=== PATIENT | male | born 1990 | race Caucasian/White ===

== ENCOUNTER → 2023-04-29 | Outpatient (REF) | payer OTHER | LOC: M LABSMT 09:18 | PROVIDERS: ATTEND Urology | DX: Z30.2 Encounter for sterilization (principal) ==

== ENCOUNTER → 2023-05-29 | Outpatient (CLI) | payer OTHER ==
[~2023-05-29] MED LIST: ISOVUE-300 61% 100ML VIAL As Ordered ONE; LIDOCAINE 1% MDV 20ML VIAL As Ordered ONE; PROHANCE 279.3MG/ML 5ML VIAL As Ordered ONE
== END ==
LOC: M RAD 12:31
PROVIDERS: ATTEND Orthopaedic Surgery
DX: M25.512 Pain in left shoulder (principal)
CPT/HCPCS: 23350; 73223; 77002; A9576; Q9967

== ENCOUNTER → 2023-08-03 | Outpatient (REF) | payer OTHER ==
[2023-08-03 13:01] LABS: SEMEN APPEARANCE OPAQUE (OPAQUE); SEMEN VISCOSITY LIQUID (LIQUID); WBC CONCENTRATION <=1 M/ml (<=1 M/ml)
== END ==
LOC: M SMT 12:16
PROVIDERS: ATTEND Urology
DX: Z30.2 Encounter for sterilization (principal)

== ENCOUNTER 2023-12-09 10:24 | Day surgery (SDC) | payer OTHER ==
[~2023-12-09] VITALS: Ht 177.8 cm; Wt 75.6 kg
[~2023-12-09 10:24] MED LIST changes: +GABA-282 PO; -ISOVUE-300 61% 100ML VIAL As Ordered ONE; -LIDOCAINE 1% MDV 20ML VIAL As Ordered ONE; -PROHANCE 279.3MG/ML 5ML VIAL As Ordered ONE; +TRANEXAMIC ACID 100 MG/ML 10ML VIAL IV ONE
[2023-12-09] MEDS ORDERED: LR 1,000 ML IV SCH ×2 (11:00→18:20)
[2023-12-09] MEDS ORDERED: fentaNYL 100 MCG/2 ML INJECTION IV PRN (12:30)
[2023-12-09] MEDS: MIDAZOLAM INJ 2MG/2ML VIAL IV PRN (13:48)
[2023-12-09] MEDS: EPINEPHrine INJ 1 MG/ML 1ML AMP INJ ONE (13:54)
[2023-12-09] MEDS: LIDOCAINE 1% SDV 5ML VIAL PN ONE (13:54)
[2023-12-09] MEDS: dexAMETHasone 10MG/1ML VIAL PRES.FREE PN ONE (13:54)
[2023-12-09] MEDS: ROPIvacaine 0.5% 30ML VIAL PN ONE (13:54)
[2023-12-09] MEDS ORDERED: VANCOMYCIN 1000MG/20ML VIAL As Ordered ONE (14:38)
[2023-12-09] MEDS: TRANEXAMIC ACID 100 MG/ML 10ML VIAL As Ordered ONE (14:38)
[2023-12-09] MEDS: LIDOCAINE 1% SDV 30ML VIAL As Ordered ONE (14:38)
[2023-12-09] MEDS ORDERED: fentaNYL 100 MCG/2 ML INJECTION As Ordered ONE (14:40)
[2023-12-09] MEDS ORDERED: propofoL 200 MG/20 ML VIAL As Ordered ONE (14:40)
[2023-12-09] MEDS ORDERED: ROCURONIUM BROMIDE 50MG/5ML VIAL As Ordered ONE (14:40)
[2023-12-09] MEDS ORDERED: LIDOCAINE 2% 100MG/5ML SDV (FOR ANES.) As Ordered ONE (14:40)
[2023-12-09] MEDS ORDERED: MIDAZOLAM INJ 2MG/2ML VIAL As Ordered ONE (14:40)
[2023-12-09] MEDS ORDERED: ACETAMINOPHEN 1000MG 100ML IV BAG As Ordered ONE (15:37)
[2023-12-09] MEDS: ceFAZolin SOD 2 GM in IV 1 EA IV ONE (15:55)
[2023-12-09] MEDS ORDERED: ONDANSETRON 4MG 2ML VIAL As Ordered ONE (15:55)
[2023-12-09] MEDS ORDERED: SUGAMMADEX SODIUM 500 MG/5 ML VIAL (BRIDION) As Ordered ONE (15:58)
[2023-12-09] MEDS: EPINEPHrine 1MG/ML INJ 30ML MD-VIAL As Ordered ONE (16:11)
[2023-12-09] MEDS ORDERED: ePHEDrine SULFATE 25 MG/5 ML(5MG/ML) SYRINGE As Ordered ONE (16:16)
[2023-12-09] MEDS ORDERED: PHENYLephrine 500MCG 5ML (100MCG/ML) SYRINGE As Ordered ONE (16:16)
[2023-12-09] MEDS ORDERED: HYDROmorphone HCL 2MG/ML 1ML VIAL As Ordered ONE (17:38)
[2023-12-09] MEDS ORDERED: oxyCODONE 5MG TAB PO PRN (18:20)
[2023-12-09] MEDS: ONDANSETRON 4MG 2ML VIAL IV PRN (18:35)
[2023-12-09] MEDS ORDERED: METOCLOPRAMIDE INJ 10MG/2ML VIAL IV PRN (19:05)
[2023-12-09] MEDS: PROMETHAZINE 25MG/ML 1ML VIAL IV PRN (19:14)
[2023-12-09] MEDS: fentaNYL 100 MCG/2 ML INJECTION IV PRN (19:49)
[2023-12-09 20:30] VITALS: BP 133/71; TEMP 97.5; O2SAT 100
== END 2023-12-09 21:01 | disposition home or self-care (01) ==
LOC: M SDC 10:24
PROVIDERS: ATTEND Orthopaedic Surgery
DX: S43.432D Superior glenoid labrum lesion of left shoulder, subsequent encounter (principal); M75.42 Impingement syndrome of left shoulder; M75.52 Bursitis of left shoulder; X58.XXXD Exposure to other specified factors, subsequent encounter; Y92.9 Unspecified place or not applicable; Y93.9 Activity, unspecified; Y99.9 Unspecified external cause status; Z79.899 Other long term (current) drug therapy; F17.290 Nicotine dependence, other tobacco product, uncomplicated
CPT/HCPCS: 29806; 29826; 64415; C1713; J0131; J0171; J0690; J1100; J1170; J2250; J2371; J2405; J2550; J2795; J3010

== ENCOUNTER 2024-04-20 06:50 | Day surgery (SDC) | payer OTHER ==
[~2024-04-20] VITALS: Ht 175.3 cm; Wt 79.0 kg
[~2024-04-20 06:50] MED LIST changes: +GABA-1172 PO; -GABA-282 PO; +NAPR-1405 PO; -TRANEXAMIC ACID 100 MG/ML 10ML VIAL IV ONE; +VARE1TAB7 PO
[2024-04-20] MEDS ORDERED: LIDOCAINE 2% 100MG/5ML SDV (FOR ANES.) As Ordered ONE (08:02)
[2024-04-20] MEDS ORDERED: propofoL 200 MG/20 ML VIAL As Ordered ONE (08:02)
[2024-04-20] MEDS ORDERED: MIDAZOLAM INJ 2MG/2ML VIAL As Ordered ONE (08:02)
[2024-04-20] MEDS ORDERED: fentaNYL 100 MCG/2 ML INJECTION As Ordered ONE (08:02)
[2024-04-20] MEDS ORDERED: ROCURONIUM BROMIDE 50MG/5ML VIAL As Ordered ONE (08:34)
[2024-04-20] MEDS ORDERED: SUGAMMADEX SODIUM 500 MG/5 ML VIAL (BRIDION) As Ordered ONE (08:53)
[2024-04-20] MEDS ORDERED: ONDANSETRON 4MG 2ML VIAL As Ordered ONE (08:53)
[2024-04-20] MEDS ORDERED: PHENYLephrine 500MCG 5ML (100MCG/ML) SYRINGE As Ordered ONE (08:56)
[2024-04-20] MEDS ORDERED: METOCLOPRAMIDE INJ 10MG/2ML VIAL IV PRN (09:00)
[2024-04-20] MEDS ORDERED: diphenhydrAMINE 50MG/ML VIAL IV PRN (09:00)
[2024-04-20] MEDS ORDERED: ONDANSETRON 4MG 2ML VIAL IV PRN (09:00)
[2024-04-20] MEDS ORDERED: fentaNYL 100 MCG/2 ML INJECTION IV PRN (09:00)
[2024-04-20] MEDS ORDERED: MEPERIDINE 25 MG/ML 1ML VIAL IV PRN (09:00)
[2024-04-20] MEDS: KETOROLAC 30 MG/ML 1ML VIAL IV ONE (09:20)
[2024-04-20] MEDS: ACETAMINOPHEN 500 MG TAB PO ONE (09:20)
[2024-04-20] MEDS: oxyCODONE 5MG TAB PO PRN (09:52)
[2024-04-20] MEDS ORDERED: LR 1,000 ML IV SCH (10:00)
[2024-04-20 10:30] VITALS: BP 122/74; TEMP 97.2; O2SAT 98
== END 2024-04-20 10:36 | disposition home or self-care (01) ==
LOC: M SDC 06:50
PROVIDERS: ATTEND Orthopaedic Surgery
DX: M75.02 Adhesive capsulitis of left shoulder (principal); Z98.890 Other specified postprocedural states; Z79.899 Other long term (current) drug therapy
CPT/HCPCS: 23700; J1100; J1885; J2250; J2371; J2405; J3010

== ENCOUNTER → 2024-05-19 | Outpatient (CLI) | payer OTHER | LOC: M WUC 15:11 | PROVIDERS: ATTEND Nurse Practitioner Family | DX: M54.50 Low back pain, unspecified (principal) ==